=== PATIENT | female | born 1970 | race Caucasian/White ===

== ENCOUNTER → 2017-03-22 | Outpatient (CLI) | payer MEDICARE, OTHER ==
--- NOTE | 2017-03-23 09:11 | MM ---
Reason for exam: screening (asymptomatic). Last mammogram was performed 2 years and 4 months ago. History: Took hormonal contraceptives for 1 year. Physical Findings: A clinical breast exam by your physician is recommended on an annual basis and results should be correlated with mammographic findings. MG 3D Screening Mammo W/Cad Bilateral CC and MLO view(s) were taken. Prior study comparison: November 24, 2014, bilateral MG screening mammo w CAD. January 13, 2013, bilateral digital screening mammo w/CAD. The breast tissue is extremely dense which could obscure a lesion on mammography. There is chronic nodularity in the right breast, reduced in size. ASSESSMENT: Benign, BI-RAD 2 RECOMMENDATION: Routine screening mammogram of both breasts in 1 year.
== END | disposition home or self-care (01) ==
LOC: RADMAMWWP 06:46
PROVIDERS: ATTEND Family Medicine
DX: Z12.31 Encounter for screening mammogram for malignant neoplasm of breast (principal)
CPT/HCPCS: 77063; G0202

== ENCOUNTER → 2018-04-24 | Outpatient (CLI) | payer MEDICARE, OTHER ==
--- NOTE | 2018-04-29 12:09 | MM ---
Reason for exam: screening (asymptomatic). Last mammogram was performed 1 year and 1 month ago. History: Patient is postmenopausal. Took hormonal contraceptives for 1 year. Physical Findings: A clinical breast exam by your physician is recommended on an annual basis and results should be correlated with mammographic findings. MG 3D Screening Mammo W/Cad Bilateral CC and MLO view(s) were taken. Prior study comparison: March 22, 2017, bilateral MG 3d screening mammo w/cad. November 24, 2014, bilateral MG screening mammo w CAD. The breast tissue is heterogeneously dense. This may lower the sensitivity of mammography. There is no discrete abnormality. No significant changes when compared with prior studies. ASSESSMENT: Negative, BI-RAD 1 RECOMMENDATION: Routine screening mammogram of both breasts in 1 year.
== END | disposition home or self-care (01) ==
LOC: RADMAMWWP 16:28
PROVIDERS: ATTEND Family Medicine
DX: Z12.31 Encounter for screening mammogram for malignant neoplasm of breast (principal)
CPT/HCPCS: 77063; 77067

== ENCOUNTER 2021-11-15 08:42 | Day surgery (SDC) | payer MEDICARE, OTHER ==
[2021-11-11 14:31] VITALS: BMI 26.2
[~2021-11-15 08:42] MED LIST: LACTATED RINGERS 1,000 ML IV SCH; LIDOCAINE 1% (10MG/ML) FOR IV START INTRADERMA PRN
[2021-11-15 09:12] VITALS: RESP 16; TEMP 97.5
[2021-11-15] MEDS ORDERED: PROPOFOL 10 MG/ML 20 ML VIAL IV ONE (09:31)
[2021-11-15] MEDS ORDERED: LIDOCAINE 1% INJ 10MG/ML (20 ML MDV) ONE (09:31)
--- NOTE | 2021-11-15 09:35 | P.GSHP ---
History of Present Illness H&P Date: 11/15/21 Chief Complaint: Blood in stool 51-year-old female here today for upper and lower endoscopy. Patient had recent stool studies showing cecal occult blood. Heartburn, no epigastric pain. No dysphagia. No bowel complaints. Last colonoscopy and EGD in 2014. Past Medical History Past Medical History: Asthma, GI Bleed, Hypertension Additional Past Medical History / Comment(s): Chronic back pain. Past hx blee ding ulcer. Hx blood in stool. History of Any Multi-Drug Resistant Organisms: None Reported Past Surgical History: Back Surgery, Ear Surgery Additional Past Surgical History / Comment(s): Surgery to straighten legs at age 1. Tumors removed from head, face. Multiple Back surgeries for scoliosis. Colonoscopy, EGD. Past Anesthesia/Blood Transfusion Reactions: No Reported Reaction Smoking Status: Former smoker - Past Family History Father Family Medical History: Liver Disease Additional Family Medical History / Comment(s): cirrhosis of liver Mother Family Medical History: Deep Vein Thrombosis (DVT) Additional Family Medical History / Comment(s): "mother had possible blood clots, wore compression socks" Medications and Allergies Home Medications Medication Instructions Recorded Confirmed Type Albuterol Sulfate [Ventolin HFA] 1 - 2 puff INHALATION Q6H PRN 11/11/21 11/15/21 History Budesonide/Formoterol Fumarate 1 puff INHALATION BID 11/11/21 11/15/21 History [Symbicort 80-4.5 Mcg Inhaler] Cyclobenzaprine [Flexeril] 10 mg PO TID PRN 11/11/21 11/15/21 History Fluticasone Propionate [Flonase 1 spray EA NOSTRIL DAILY PRN 11/11/21 11/15/21 History Allergy Relief] Ibuprofen [Motrin] 800 mg PO Q6H PRN 11/11/21 11/15/21 History Losartan [Cozaar] 25 mg PO DAILY 11/11/21 11/15/21 History Montelukast [Singulair] 10 mg PO HS 11/11/21 11/15/21 History Omeprazole [PriLOSEC] 20 mg PO AC-BRKFST 11/11/21 11/15/21 History busPIRone HCL 5 mg PO TID 11/11/21 11/15/21 History Allergies Allergy/AdvReac Type Severity Reaction Status Date / Time No Known Allergies Allergy Verified 11/15/21 09:11 Surgical - Exam Vital Signs Temp Pulse Resp BP Pulse Ox 97.5 F L 92 16 121/70 97 11/15/21 09:10 11/15/21 09:10 11/15/21 09:10 11/15/21 09:10 11/15/21 09:10 Physical exam: General: Well-developed, well-nourished HEENT: Normocephalic, sclerae nonicteric Abdomen: Nontender, nondistended Extremities: No edema Neuro: Alert and oriented Assessment and Plan (1) Blood in stool Narrative/Plan: Will proceed with upper and lower endoscopy Current Visit: Yes Status: Acute Code(s): K92.1 - MELENA SNOMED Code(s): 097567084
--- NOTE | 2021-11-15 09:57 | P.PCN ---
Date of Procedure: 11/15/21 Procedure(s) Performed: PREOPERATIVE DIAGNOSIS: Blood in stool POSTOPERATIVE DIAGNOSIS: Duodenitis, gastritis, hiatal hernia, mild proctitis PROCEDURE: 1. EGD with biopsy 2. Colonoscopy with biopsy ANESTHESIA: [facility] [place] SURGEON: Garfield Zuñiga M.D. SPECIMENS: Duodenum, antrum, body of stomach, rectum ENDOSCOPIC PROCEDURE: The patient was on the endoscopy table in the left decubitus position. The Olympus gastroscope was inserted into the oropharynx and passed under direct visualization to the region of the third portion of the duodenum. From that point the scope was slowly withdrawn inspecting all surfaces carefully. There was mild duodenitis present. Biopsies of the duodenum took place. The pylorus was widely patent. The stomach was inspected. There was gastritis present diffusely. Antral and body of the stomach biopsies were taken. Retroflexion revealed a small sliding hiatal hernia. No inflammatory changes at the level of the hiatal hernia and no abnormalities in the esophagus were noted. The patient was kept on the endoscopy table in the left decubitus position. The Olympus colonoscope was inserted into the anus and passed under direct visualization to the base of the cecum. The appendiceal orifice was visualized. From that point the scope was slowly withdrawn inspecting all surfaces carefully. There were no neoplastic inflammatory or polypoid lesions throughout the cecum, ascending, transverse, descending, and sigmoid colon. In the rectum distally involving the last 7 cm or so there was mild proctitis present. This may have been the source of recent fecal occult blood test positivity. Biopsies of the proctitis took place. There was no visible diverticulosis. Digital rectal examination was normal. The patient was taken to the recovery room in stable condition per anesthesia guidelines. RECOMMENDATIONS: Await biopsy results. Will contact patient with pathology results.
[2021-11-15 10:31] VITALS: BP 111/75; PULSE 72
== END 2021-11-15 10:49 | disposition home or self-care (01) ==
LOC: ORWHC2ENDO 08:42
PROVIDERS: ATTEND Surgery
DX: K29.80 Duodenitis without bleeding (principal); K29.70 Gastritis, unspecified, without bleeding; K62.89 Other specified diseases of anus and rectum; J45.909 Unspecified asthma, uncomplicated; I10 Essential (primary) hypertension; M41.9 Scoliosis, unspecified; Z87.891 Personal history of nicotine dependence
CPT/HCPCS: 45380; 43239; 88305; J2001; J2704

== ENCOUNTER → 2022-08-18 | Outpatient (CLI) | payer MEDICARE, OTHER ==
--- NOTE | 2022-08-18 15:05 | P.GSHP ---
History of Present Illness H&P Date: 08/18/22 Chief Complaint: abnormal bilateral breast ultrasound Javi is a 52 year old white female seen in consultation for Dr. Garcia regarding bilateral abnormal breast ultrasounds. She had a bilateral screening mammogram performed on [id number]. This revealed some calcifications in the right breast and a diagnostic right breast mammogram and bilateral breast ultrasounds were subsequently performed. Diagnostic mammogram was performed on [id number]. Additionally bilateral ultrasounds were performed in the right side 2 lesions were identified on ultrasound one at the 12 o'clock position, and one at the 10 o'clock position. In the left breast a lesion at the 1 o'clock position was identified for which core biopsy was recommended. Of concern is the fact that the patient also has microcalcifications in the right breast and following ultrasound core biopsy it should be ascertained that the area of calcifications are also sampled. The patient does not feel any new lumps masses or nodules of concern in either breast. She is not complaining of any nipple discharge or skin changes. She has never had any surgery on her breast. She has not had any recent trauma or infection in her breast. She is not complaining of any breast pain or nipple discharge. Caffeine: 3 cups coffee/day nicotine: stopped 20 years ago, used to smoke 1/2 PPD for 10 years chocolate: occasional BCP: 20 years stopped about 10 years ago Family History: none Hormonal History: menarche: 15 breast fed: no, age at first : 18 menopause: 48 Surgical History: bilateral legs 2 face for neurofibromatosis back scoliosis Medical history: HTN anxiety asthma muscle relaxers Social History: nicotine: as above alcohol: none' drugsL none - Constitutional Constitutional: Denies chills, Denies fever - EENT Eyes: bilateral blurred vision, denies pain Ears: left: decreased hearing, deny: tinnitus Ears, nose, mouth and throat: Denies headache, Denies sore throat - Breasts Breasts: bilateral: as per HPI - Cardiovascular Cardiovascular: Denies chest pain, Denies shortness of breath - Respiratory Comment: asthma - Gastrointestinal Comment: bleeding ulcer Gastrointestinal: Denies abdominal pain, Denies diarrhea, Denies nausea, Denies vomiting - Genitourinary (Female) Genitourinary: Denies dysuria, Denies hematuria - Menstruation Menstruation: Reports postmenopausal - Musculoskeletal Musculoskeletal: Reports as per HPI, Denies myalgias - Integumentary Integumentary: Denies pruritus, Denies rash - Neurological Neurological: Denies numbness, Denies weakness - Psychiatric Psychiatric: Reports anxiety - Endocrine Endocrine: Denies fatigue, Denies weight change - Hematologic/Lymphatic Comment: none - Allergic/Immunologic Allergic/Immunologic: Reports seasonal allergies Past Medical History Past Medical History: Asthma, GI Bleed, Hypertension Additional Past Medical History / Comment(s): Chronic back pain. Past hx bleeding ulcer. Hx blood in stool. History of Any Multi-Drug Resistant Organisms: None Reported Past Surgical History: Back Surgery, Ear Surgery Additional Past Surgical History / Comment(s): Surgery to straighten legs at age 1. Tumors removed from head, face. Multiple Back surgeries for scoliosis. Colonoscopy, EGD. Past Anesthesia/Blood Transfusion Reactions: No Reported Reaction Past Psychological History: Anxiety Smoking Status: Former smoker Past Alcohol Use History: None Reported Additional Past Alcohol Use History / Comment(s): Smoked 5 years, quit 1995. Past Drug Use History: None Reported - Past Family History Father Family Medical History: Liver Disease Additional Family Medical History / Comment(s): cirrhosis of liver Mother Family Medical History: Deep Vein Thrombosis (DVT) Additional Family Medical History / Comment(s): "mother had possible blood clots, wore compression socks" Medications and Allergies Home Medications Medication Instructions Recorded Confirmed Type Albuterol Sulfate [Ventolin HFA] 1 - 2 puff INHALATION Q6H PRN 11/11/21 08/15/22 History Budesonide/Formoterol Fumarate 1 puff INHALATION BID 11/11/21 08/15/22 History [Symbicort 80-4.5 Mcg Inhaler] Cyclobenzaprine [Flexeril] 10 mg PO TID PRN 11/11/21 08/15/22 History Fluticasone Propionate [Flonase 1 spray EA NOSTRIL DAILY PRN 11/11/21 08/15/22 History Allergy Relief] Ibuprofen [Motrin] 800 mg PO Q6H PRN 11/11/21 08/15/22 History Losartan [Cozaar] 25 mg PO DAILY 11/11/21 08/15/22 History Montelukast [Singulair] 10 mg PO HS 11/11/21 08/15/22 History Omeprazole [PriLOSEC] 20 mg PO AC-BRKFST 11/11/21 08/15/22 History busPIRone HCL 5 mg PO TID 11/11/21 08/15/22 History Allergies Allergy/AdvReac Type Severity Reaction Status Date / Time No Known Allergies Allergy Verified 08/15/22 10:26 Surgical - Exam - General no distress - Eyes normal ocular movement - Neck trachea midline - Respiratory normal respiratory effort, clear to auscultation - Cardiovascular Rhythm: regular Heart Sounds: normal: S1, S2 - Abdomen Abdomen: soft, non tender, no guarding, no rigid, no rebound - Integumentary normal turgor, scattered neurofibromas superficial - Neurologic no disoriented, no combative - Musculoskeletal Scoliosis/well-healed scar back from prior surgery normal gait, normal posture - Psychiatric oriented to time, oriented to person, oriented to place, speech is normal, memory intact Breast Exam: BRA: 36B Inspection: Bilateral grade 2 ptosis, neurofibromas superficially bilaterally Palpation: Right breast: Multi-positional exam fibrocystic changes, no discrete dominant masses or nodules of concern particularly attention is paid at the 12:00 and 10 o'clock position with no lesions of concern palpated Right axilla: No adenopathy of concern Left breast: Multi-positional exam fibrocystic changes no dominant discrete lesions of concern identified particular attention at the 1 o'clock positionof the lesions of concern Left axilla: No adenopathy of concern Results Mammogram and ultrasound reviewed personally with Dr. Suarez from radiology Assessment and Plan Assessment: Impression: HTN anxiety asthma muscle relaxers Neurofibromatosis Scoliosis Abnormal bilateral breast ultrasound, mammogram revealing some microcalcifications in the right breast Plan: Ultrasound-guided core biopsy 2 lesions in the right breast 1 lesion in the left breast The area of microcalcifications will be evaluated after the clips are placed from ultrasound core biopsy of that area has not been sampled the stereotactic core biopsy of a third area in the right breast is recommended The patient is scheduled for the ultrasound core biopsy on August 25. In benefits of the procedure discussed with the patient and her daughter. They understand she will follow-up approximately week after the biopsies. CC: Devika Yanes, Dr. Garcia
== END ==
LOC: WWCWWP 13:56
PROVIDERS: ATTEND Surgery
DX: I10 Essential (primary) hypertension (principal); R92.0 Mammographic microcalcification found on diagnostic imaging of breast; F41.9 Anxiety disorder, unspecified; J45.909 Unspecified asthma, uncomplicated; M41.9 Scoliosis, unspecified; Q85.00 Neurofibromatosis, unspecified

== ENCOUNTER → 2022-08-25 | Day surgery (SDC) | payer MEDICARE, OTHER ==
--- NOTE | 2022-08-30 09:49 | MM ---
Reason for Exam: Post Procedure Mammogram. Last mammogram was performed 4 year(s) and 4 month(s) ago. Patient History: Menarche at age 15. First Full-Term at age 18. Postmenopausal. Patient used Hormonal Contraceptives for 1 year. Risk Values: Itzel 5 year model risk: 0.7%. NCI Lifetime model risk: 5.7%. Prior Study Comparison: 11/24/2014 Bilateral Screening Mammogram, [facility]. 03/22/2017 Bilateral Screening Mammogram, [facility]. 04/24/2018 Bilateral Screening Mammogram, [facility]. Tissue Density: The breast tissue is heterogeneously dense. This may lower the sensitivity of mammography. Pathology Description: Location: 1 o'clock, upper outer quadrant, posterior. Marker Left Behind. Cores: 2 Gauge: 12 The ultrasound guided cyst aspiration and/or breast biopsy procedure was explained to the patient. The risks, benefits, alternatives were discussed. An informed consent was then obtained. Timeout was performed. The patient was placed in supine positioning for imaging and for the procedure. Preprocedure ultrasound redemonstrates oval 7 mm lesion 12:00 position 2 cm distance from nipple in the right breast fairly anechoic with thin septa and increased through transmission favoring septated cyst. There is round circumscribed 7 mm hypoechoic lesion 10:00 position 3 cm distance from nipple redemonstrated with suggestion of internal calcification. Left breast shows vague elongated hypoechoic area measuring near 10 mm long axis I:00 position 5 cm distance from nipple. The overlying skin was prepped with betadine and sterilely draped in usual sterile fashion. 10 ml 1% lidocaine was used as anesthetic into the skin. A total of 10 cc lidocaine with epinephrine is used as anesthetic into the Deeper breast tissue up to area of concern in bilateral breasts. Under ultrasound guidance fine-needle aspiration first performed of the 12:00 lesion yielding less than 1 cc of cloudy fluid. A BF clip was then placed., Attention then turned to the 10:00 lesion. 2 core samples were obtained under ultrasound guidance then wing clip was placed. Attention then turned to left breast 1:00 area of concern. 2 samples placed under ultrasound guidance. BF clip then placed. Good hemostasis was obtained with direct pressure. Postprocedure mammogram: The patient was transferred to mammography for physician ordered post procedure mammogram for clip placement verification. Successful deployment of left breast clip without suspicious area on recent mammogram. Successful deployment of both right breast clips with second wing clip corresponding to the worked up calcified lesion farther outer upper aspect right breast. The patient tolerated the procedure well without any immediate complication. The patient was discharged to home in stable condition. Impression: Successful ultrasound guided cyst aspiration nonsimple cyst right breast. Successful ultrasound guided core biopsy right breast lesion and left breast area. Cytology pending. Low index of suspicion of the aspiration nonsimple cysts right breast 12:00 position. Low index of suspicion of the left breast biopsied area. Intermediate index of suspicion of the right breast biopsied 10:00 lesion. Pathology Results: Result: Benign, Fibrocystic change. A. RIGHT BREAST, 10:00, NEEDLE CORE BIOPSY: Attenuated cyst wall with chronic inflammation, fibrosis, and foamy histiocytes suggestive of cyst rupture. Background fibrocystic changes. B. LEFT BREAST, 1:00, NEEDLE CORE BIOPSY: Fibroadenoma and background fibrocystic changes. RIGHT BREAST, 12:00, ASPIRATE: Hypocellular specimen consisting of degenerated blood and rare degenerated epithelioid cells, non-diagnostic. Pathology Description: Location: 10 o'clock, upper outer quadrant, posterior. Marker Left Behind. Needle Type: Celero Cores: 2 Gauge: 12 Pathology Description: Location: 12 o'clock, upper inner quadrant. BUTTERFLY CLIP. Overall Assessment: Benign Assessment: MG diagnostic mammo BI wo CAD - Bilateral: Benign, BI-RAD 2. Management: Diagnostic Breast Ultrasound of both breasts in 6 months. Electronically signed and approved by: Don Suarez M.D.
== END ==
LOC: RADUSWWP 09:53
PROVIDERS: ATTEND Surgery
DX: R92.8 Other abnormal and inconclusive findings on diagnostic imaging of breast (principal); D24.2 Benign neoplasm of left breast; N61.0 Mastitis without abscess; N60.21 Fibroadenosis of right breast
CPT/HCPCS: 88305; 77066; 76942; 19000; 19083 ×2; A4648

== ENCOUNTER → 2022-08-31 | Outpatient (CLI) | payer MEDICARE, OTHER ==
--- NOTE | 2022-08-31 15:18 | P.PN ---
Subjective Progress Note Date: 08/31/22 Principal diagnosis: fibrocystic breast changes Javi is a 52 year old white female status post bilateral breast biopsies. The patient did well with the biopsies and has no complaints at this time. [id number] right breast 10:00 needle core biopsy: Attenuated cyst wall with chronic inflammation [id number] left breast 1:00 needle core biopsy: Fibroadenoma [id number] right breast 12:00 aspirate hypocellular specimen consisting of degenerated blood Rectal examination: Biopsy site right and left breast clean and dry Lungs: Clear Heart: Regular rate and rhythm The pathology results were reviewed by Dr. Suarez and felt to be benign and concordant Recommendation is for repeat bilateral ultrasound in 6 months with examination at that time. CC: Dr. Garcia Objective - Vital Signs Vital signs: Intake & Output 08/30/22 08/31/22 08/31/22 18:59 06:59 18:59 Weight 61.235 kg
== END ==
LOC: WWCWWP 14:48
PROVIDERS: ATTEND Surgery
DX: N60.21 Fibroadenosis of right breast (principal); N60.22 Fibroadenosis of left breast

== ENCOUNTER 2023-01-24 08:36 | Emergency (ER) | payer MEDICARE, OTHER ==
--- NOTE | 2023-01-24 09:46 | XR ---
EXAMINATION TYPE: XR cervical spine comp DATE OF EXAM: 01/24/2023 9:38 AM INDICATION: Patient age:Female; 52 years old; Reason for study: pain; COMPARISON: None TECHNIQUE: The cervical spine was imaged in frontal, lateral, odontoid and bilateral oblique. FINDINGS: Fixation hardware throughout the spine. There is a break through the serenity appreciated on the left just below the C5 vertebrae collection.. There remainder of the hardware appears intact. No acu te osseous pathology. Fusion of the osseous structures seen extending from C3 to the lower cervical s pine. Facet and uncovertebral joint arthropathy are present. Final canal slightly limited given fixat ion hardware. There may be mild grade 1 anterolisthesis of C2 on C3. IMPRESSION: 1. Post surgical changes with fixation hardware. There is a fracture of the fixation serenity on the left just below the C5 vertebrae connection. Multilevel fusion of the vertebral bodies. No obvious fractu re visualized. 2. Minimal grade 1 anterolisthesis of C2 onto C3.
[2023-01-24 10:15] VITALS: RESP 16
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
[2023-01-24 11:10] VITALS: BP 151/78; PULSE 79; TEMP 98
== END 2023-01-24 11:08 | disposition home or self-care (01) ==
LOC: EC 08:36
DX: T84.296A Other mechanical complication of internal fixation device of vertebrae, initial encounter (principal); J45.909 Unspecified asthma, uncomplicated; I10 Essential (primary) hypertension; F41.9 Anxiety disorder, unspecified; Z87.891 Personal history of nicotine dependence; Z79.51 Long term (current) use of inhaled steroids; Z79.899 Other long term (current) drug therapy; V49.40XA Driver injured in collision with unspecified motor vehicles in traffic accident, initial encounter
CPT/HCPCS: 72050; 99284

== ENCOUNTER 2023-03-02 07:33 | Day surgery (SDC) | payer MEDICARE, OTHER ==
[2023-03-02 08:23] VITALS: RESP 16; TEMP 97.5
[2023-03-02] MEDS ORDERED: diazePAM 5 MG TAB PO STA (08:27)
--- NOTE | 2023-03-02 11:57 | CT ---
EXAMINATION TYPE: CT cervical spine w con DATE OF EXAM: 03/02/2023 COMPARISON: Radiograph 01/24/2023 HISTORY: 52-year-old female with multiple surgeries for scoliosis and previous spine injury. Recent M [facility] with exacerbated neck and shoulder pain. TECHNIQUE: Contiguous CT scanning of the cervical spine after intrathecal administration of Isovue M 300. Please refer to myelogram injection report of the same day for further details. Coronal and sagi ttal reconstructions performed. CT DLP: 523.6 mGycm Automated exposure control for dose reduction was used. FINDINGS: Goiterous enlargement of the thyroid gland, particularly the right lobe which measures up to 4.9 x 3. 3 x 3.9 cm. There is a marked dextroconvex scoliosis. No craniocervical junction abnormality, predental space widening, or prevertebral soft tissue swellin g. Posterior cervicothoracic fusion. Starting from C2 on the right and C3 on the left. We note a serenity fracture on the left at the C6 level located between the facet screw portion and the la minar hook. There is minimal 2 mm of displacement. The right C2 facet screw does not have any bony purchase and may be causing some chronic bony remodel ing of the right C2 inferior facet given lucency surrounding the tip of the screw. Prominent grade 1 anterolisthesis C2-C3. There is some type of large osseous defect and jim 2 cm of anterior displacement at T1-T2 possibly related to old spine transection. Further clinical correlation recommended. The osseous defect measures up to 3.1 cm, sagittal image 31, and allows for a large meningocele to pr oject into and fill the right apex measuring up to 6.2 x 6.0 x 5.1 cm. This opacifies with the admini stered contrast similar to the thecal sac. From C3 down, there is mature bony ankylosis. Platelike bony bridging along the dorsum of the spine e xtending along the ribs to either side. No evident canal compromise. No significant neural foraminal narrowing seen. Emphysematous changes in the visualized upper lungs. Hazy density could reflect generalized atelectas is. IMPRESSION: 1. Marked dextroconvex scoliosis with cervicothoracic posterior fusion hardware. This starts from C2 on the right and from C3 on the left. However, note that the C2 facet screw does not have any bony pu rchase and given the bony remodeling at the tip of the screw, suggests some motion at this site. 2. The left vertical stabilization serenity is fractured opposite the C6 level between the facet screw por tion and the laminar hook. Minimal 2 mm of displacement of the serenity. 3. A 2 cm anterior displacement between T1-T2; query any history of traumatic spine transection. 4. Mature bony ankylosis from C3 down. From the level of spinal malalignment (T1-T2) there is plateli ke bony ankylosis along the dorsum of the spine that also include some of the ribs as well. 5. There is a resultant large 3.1 cm osseous defect of the spinal canal projecting towards the right. This allows for a large 6.2 cm meningocele to extend into and fill the right apex. The meningocele a lso fills with the administered contrast similar to the rest of the thecal sac. 6. A degenerative prominent grade 1 anterolisthesis above the fusion at C2-C3. No spinal canal compro mise or significant neuroforaminal stenosis seen. 7. COPD.
--- NOTE | 2023-03-02 11:59 | XR ---
EXAMINATION TYPE: XR chest 1V portable DATE OF EXAM: 03/02/2023 Comparison: Correlation CT myelogram images Clinical History: 52-year-old female post Myleogram Findings: The C3 down through T12 posterior cervicothoracic fusion. Dextro convex scoliosis. Cardiomegaly. Hype rinflation. Interstitial prominence. Large oval masslike area at the right apex measuring 6.5 cm. Impression: 1. Large 6.5 cm oval masslike area filling the right apex compatible with the large meningocele (opac ified with the intrathecal contrast) that is better characterized on the patient's CT images. 2. Marked dextroconvex scoliosis with prior cervicothoracic fusion. 3. Cardiomegaly, COPD. Interstitial prominence; correlate to exclude mild pulmonary vascular congesti on.
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
[2023-03-02 14:01] VITALS: BP 115/67; PULSE 76
== END 2023-03-02 13:50 | disposition home or self-care (01) ==
LOC: RADPROMAIN 07:33
PROVIDERS: ATTEND Family Medicine
DX: M96.69 Fracture of other bone following insertion of orthopedic implant, joint prosthesis, or bone plate (principal); M41.82 Other forms of scoliosis, cervical region; E04.9 Nontoxic goiter, unspecified; Z98.1 Arthrodesis status; M43.16 Spondylolisthesis, lumbar region; M51.24 Other intervertebral disc displacement, thoracic region; Q05.9 Spina bifida, unspecified; J44.9 Chronic obstructive pulmonary disease, unspecified; I51.7 Cardiomegaly; M48.061 Spinal stenosis, lumbar region without neurogenic claudication; Z87.81 Personal history of (healed) traumatic fracture; M47.814 Spondylosis without myelopathy or radiculopathy, thoracic region; M47.816 Spondylosis without myelopathy or radiculopathy, lumbar region; M51.36 Other intervertebral disc degeneration, lumbar region; K57.30 Diverticulosis of large intestine without perforation or abscess without bleeding; M41.86 Other forms of scoliosis, lumbar region
CPT/HCPCS: 71045; 62305; 72126; 72132; Q9967

== ENCOUNTER → 2023-03-08 | Outpatient (CLI) | payer MEDICARE, OTHER ==
--- NOTE | 2023-03-08 08:32 | USB ---
Reason for Exam: Follow-up at short interval from prior study. Patient History: Menarche at age 15. First Full-Term at age 18. Postmenopausal. Patient used Hormonal Contraceptives for 1 year. 08/25/2022, Benign US biopsy breast VAD LT on the left side. 08/25/2022, US biopsy breast VAD RT on the Right side. 08/25/2022, US breast aspiration single RT on the Right side. Risk Values: Itzel 5 year model risk: 1.1%. NCI Lifetime model risk: 8.4%. Technique: Method: Targeted. Prior Study Comparison: 03/22/2017 Bilateral Screening Mammogram, [facility]. 04/24/2018 Bilateral Screening Mammogram, [facility]. 08/25/2022 Bilateral MG diagnostic mammo BI wo CAD, [facility]. Findings: The upper outer quadrant of both breasts, the axilla of both breasts and the retroareolar of both breasts were scanned. Targeted ultrasound of the right breast at 10:00 3 cm from the nipple does not demonstrate previously seen biopsied lesion. The clip is not definitely identified. Targeted ultrasound of the right breast at 12:00 2 cm from the nipple demonstrates the biopsy clip within a small anechoic cyst measuring 0.5 x 0.4 x 0.7 cm. No solid internal components identified. No internal color flow. Additional evaluation of the nipple and axilla was performed without abnormality. Targeted ultrasound of the left breast at 1:00 5 cm from the nipple redemonstrates a lobulated hypoechoic mass with biopsy clip consistent with proven adenoma. This is not significant change from prior examination measures 1.0 x 0.5 x 1.2 cm. No internal color flow. This is parallel in orientation. No posterior acoustic features. Additional evaluation of the nipple and axilla are unremarkable. Overall Assessment: Benign, BI-RAD 2 Management: Screening Mammogram of both breasts in 6 months. A clinical breast exam by your physician is recommended on an annual basis and results should be correlated with mammographic findings. This exam should not preclude additional follow-up of suspicious palpable abnormalities. Results were given to the patient verbally at the time of exam. Electronically signed and approved by: Salvador Buckner D.O.
== END | disposition home or self-care (01) ==
LOC: RADUSWWP 07:55
PROVIDERS: ATTEND Surgery
DX: R92.8 Other abnormal and inconclusive findings on diagnostic imaging of breast (principal); Z78.0 Asymptomatic menopausal state

== ENCOUNTER → 2023-06-14 | Outpatient (CLI) | payer MEDICARE, OTHER ==
[2023-06-14 09:42] VITALS: BP 150/84; PULSE 92; RESP 16
--- NOTE | 2023-06-14 14:50 | P.PAINPG ---
PQRS Measure Charge Sheet Comment: HISTORY OF PRESENT ILLNESS: 52 yr old female as a referral from Dr Garcia presents today w severe and chronic LBP secondary to L4-L5 focal severe spinal stenosis, DDD, spondylosis and facet arthropathy without myelopathy for evaluation. Pt states pain level is provoked at 7/10 in intensity, constant, localized in the lower lumbar spine, stabbing in character w shooting pain towards the LLE. Pain is provoked by walking/ standing for periods of 20 min or more. Pain is alleviated by heat, medications (Celebrex), topical, repositioning and rest. Oswestry axial pain score at 18. PMH: OA, Asthma, GERD, HTN, Anxiety PSH: Back Surgeries for Scoliosis, Ear Surgery, Colonoscopy/ EGD SH: 5 pack yr tobacco history, No ETOH abuse, No illicit drug use FH: Fa- Liver Cirrhosis, Mo- DVT All: See list Meds: See list REVIEW OF ORGAN SYSTEMS: CONSTITUTIONAL: No fevers or chills. No recent weight loss. NEUROLOGICAL: + numbness and tingling along the distal extremities. No seizure disorders or headaches. MUSCULOSKELETAL: + pain PSYCHIATRIC: Denies current depression or suicidal thoughts. Physical Examinations : Constitutional : Cooperative , not in acute distress . Neurologic : Cranial nerve II to XII intact. No focal neurological deficits. Psychiatric : alert & oriented x 3. Matching mood & appropriate affect. Judgment & insight intact. Musculoskeletal : Cervical Spine Motor strength in the deltoid and biceps: Normal right side. Normal Left side Motor strength biceps and the wrist extensors: Normal right side . Normal left side Motor strength in the triceps muscle: Normal right side. Normal left side Deep tendon reflexes: Normal at the biceps. Normal at Brachioradialis. Normal at triceps Vertebral body tenderness to deep palpation over Cervical facet loading test: positive bilaterally Spurling test: positive bilaterally Neck distraction test: positive bilaterally Catracho sign: positive bilaterally Lumbar spine Motor strength lower extremities ,thigh and legs 5/5 Right side , 5/5 Left side Deep tendon reflexes : Normal Knee Jerk. Normal Ankle Jerk Vertebral body tenderness over Patel Test positive Lumbar facet Loading Test: positive Right / positive Left Range of motion of the lumbar spine Flexion 30 degrees, extension 10 degrees Straight Leg Raise test: Left/ Right positive at degree Nona test: positive right / positive left. Severe tenderness over the Sacroiliac joint on the Right / Left sides Gaenslen test: positive bilaterally Seated flexion test: positive bilaterally. Sacral spine : Severe tenderness over the Sacroiliac joint: right side / left side Range of motion: Flexion of the lumbar spine <60 degrees Range of motion: Extension of the lumbar spine <20 degrees Gaenslen's Test positive Jeb's Test positive Nona test: positive right side / left side Thigh Thrust Test Sacral Thrust Test Imaging: CT without contrast lumbar spine from 03/02/23 reviewed Assessment/ Plan : Lumbar DDD, Lumbar stenosis Recommendation of PT x 6 wks Dx M51.36. RTC in 6 wks for a re evaluation. All questions answered. I have spent greater than 30 minutes on patient care today. Dr Shah was available by phone for the evaluation of this patient. The time was used to review the medical records including relevant urine studies and Prescription h istory (MAPs), review of the available imaging, evaluation and examination of the patient, coordination of care with the medical staff and if applicable referring physicians, as well as creation of the medical record Home Medications: Ambulatory Orders Albuterol Sulfate [Ventolin HFA] 1 - 2 puff INHALATION Q6H PRN 11/11/21 Budesonide/Formoterol Fumarate [Symbicort 80-4.5 Mcg Inhaler] 1 puff INHALATION BID 11/11/21 Cyclobenzaprine [Flexeril] 10 mg PO TID PRN 11/11/21 Ibuprofen [Motrin] 800 mg PO Q6H PRN 11/11/21 Losartan [Cozaar] 25 mg PO DAILY 11/11/21 Montelukast [Singulair] 10 mg PO HS 11/11/21 busPIRone HCL 5 mg PO TID 11/11/21 Cholecalciferol [Vitamin D3 (125 Mcg = 5000 Iu)] 125 mcg PO ONCE 02/21/23 Controlled Substance Measures - Controlled Substance Measures Is patient prescribed a controlled substance at discharge?: No
== END ==
LOC: PNWHC3 08:40
PROVIDERS: ATTEND Specialist
DX: M48.061 Spinal stenosis, lumbar region without neurogenic claudication (principal); M51.16 Intervertebral disc disorders with radiculopathy, lumbar region; M47.26 Other spondylosis with radiculopathy, lumbar region; M19.90 Unspecified osteoarthritis, unspecified site; J45.909 Unspecified asthma, uncomplicated; K21.9 Gastro-esophageal reflux disease without esophagitis; I10 Essential (primary) hypertension; F41.9 Anxiety disorder, unspecified; F17.200 Nicotine dependence, unspecified, uncomplicated; Z79.899 Other long term (current) drug therapy; Z79.51 Long term (current) use of inhaled steroids
CPT/HCPCS: 99211

== ENCOUNTER → 2023-07-26 | Outpatient (CLI) | payer MEDICARE, OTHER ==
[2023-07-26 08:43] VITALS: BP 128/80; PULSE 78; RESP 16; TEMP 98.3
--- NOTE | 2023-07-26 10:29 | P.PAINPG ---
PQRS Measure Charge Sheet Comment: HISTORY OF PRESENT ILLNESS: 52 yr old female presents today w severe and chronic LBP secondary to L4-L5 focal severe spinal stenosis, DDD, spondylosis and facet arthropathy without myelopathy for evaluation. Pt states pain level is provoked at 6/10 in intensity, constant, localized in the lower lumbar spine, predominantly axial, stabbing in character w shooting pain towards the back of the BLEs. Pain is provoked by walking/ standing for periods of 20 min or more. Pain is alleviated by PT x 6 wks in Jul 2023, physician guided home exercises daily since Jul 2023, heat, medications, topical, repositioning and rest. Oswestry axial pain score at 18. Interventional procedures include DENIES Medications include Celebrex, Ibu, Flexeril REVIEW OF ORGAN SYSTEMS: CONSTITUTIONAL: No fevers or chills. No recent weight loss. NEUROLOGICAL: + numbness and tingling along the distal extremities. No seizure disorders or headaches. MUSCULOSKELETAL: + pain PSYCHIATRIC: Denies current depression or suicidal thoughts. Physical Examinations : Constitutional : Cooperative , not in acute distress . Neurologic : Cranial nerve II to XII intact. No focal neurological deficits. Psychiatric : alert & oriented x 3. Matching mood & appropriate affect. Judgment & insight intact. Musculoskeletal : Cervical Spine Motor strength in the deltoid and biceps: Normal right side. Normal Left side Motor strength biceps and the wrist extensors: Normal right side . Normal left side Motor strength in the triceps muscle: Normal right side. Normal left side Deep tendon reflexes: Normal at the biceps. Normal at Brachioradialis. Normal at triceps Vertebral body tenderness to deep palpation over Cervical facet loading test: positive bilaterally Spurling test: positive bilaterally Neck distraction test: positive bilaterally Catracho sign: positive bilaterally Lumbar spine Motor strength lower extremities ,thigh and legs 5/5 Right side , 5/5 Left side Deep tendon reflexes : Normal Knee Jerk. Normal Ankle Jerk Vertebral body tenderness over Patel Test positive over L4, L5 Lumbar facet Loading Test: positive Right / positive Left Range of motion of the lumbar spine Flexion 30 degrees, extension 10 degrees Straight Leg Raise test: Left/ Right positive at <35 degrees Nona test: positive right / positive left. Severe tenderness over the Sacroiliac joint on the Right / Left sides Gaenslen test: positive bilaterally Seated flexion test: positive bilaterally. Sacral spine : Severe tenderness over the Sacroiliac joint: right side / left side Range of motion: Flexion of the lumbar spine <60 degrees Range of motion: Extension of the lumbar spine <20 degrees Gaenslen's Test positive Jeb's Test positive Nona test: positive right side / left side Thigh Thrust Test Sacral Thrust Test Imaging: CT without contrast lumbar spine from 03/02/23 reviewed Assessment/ Plan : Lumbar DDD, Lumbar stenosis Recommendation of BL TFESI L4-L5 #1. May need a series of injections for optimal pain relief. Risks, benefits of procedure discussed and pt verbalized unders tanding. Protocol for discontinuation/ continuation of medications surrounding procedure discussed. Would benefit from TENS unit use at home on since off from PT. All questions answered. I have spent greater than 30 minutes on patient care today. Dr Shah was available by phone for the evaluation of this patient. The time was used to review the medical records including relevant urine studies and Prescription history (MAPs), review of the available imaging, evaluation and examination of the patient, coordination of care with the medical staff and if applicable referring physicians, as well as creation of the medical record PQRS Narrative: Hx Alcohol Use (MH) No Home Medications: Ambulatory Orders Albuterol Sulfate [Ventolin HFA] 1 - 2 puff INHALATION Q6H PRN 11/11/21 Budesonide/Formoterol Fumarate [Symbicort 80-4.5 Mcg Inhaler] 1 puff INHALATION BID 11/11/21 Cyclobenzaprine [Flexeril] 10 mg PO TID PRN 11/11/21 Ibuprofen [Motrin] 800 mg PO Q6H PRN 11/11/21 Losartan [Cozaar] 25 mg PO DAILY 11/11/21 Montelukast [Singulair] 10 mg PO HS 11/11/21 busPIRone HCL 5 mg PO TID 11/11/21 Cholecalciferol [Vitamin D3 (125 Mcg = 5000 Iu)] 125 mcg PO ONCE 02/21/23 Controlled Substance Measures - Controlled Substance Measures Is patient prescribed a controlled substance at discharge?: No
== END ==
LOC: PNWHC3 07:30
PROVIDERS: ATTEND Specialist
DX: M51.36 Other intervertebral disc degeneration, lumbar region (principal); M48.061 Spinal stenosis, lumbar region without neurogenic claudication
CPT/HCPCS: 99211

== ENCOUNTER 2023-08-21 08:47 | Day surgery (SDC) | payer MEDICARE, OTHER ==
[~2023-08-21 08:47] MED LIST changes: -LIDOCAINE 1% (10MG/ML) FOR IV START INTRADERMA PRN
[2023-08-21 09:25] VITALS: TEMP 98.2
[2023-08-21] MEDS ORDERED: DEXAMETHASONE SOD PHOSPHATE 10 MG/ML 1 ML VIAL ONE (09:26)
[2023-08-21] MEDS ORDERED: IOPAMIDOL M200 10 ML VIAL ONE (09:26)
--- NOTE | 2023-08-21 09:37 | P.PCN ---
Date of Procedure: 08/21/23 Description of Procedure: PREOPERATIVE DIAGNOSIS: Lumbar radiculopathy POSTOPERATIVE DIAGNOSIS: Lumbar radiculopathy PROCEDURE 1. Transforaminal epidural steroid injection under fluoroscopic guidance bilateral L4-L5 2. Lumbar epidurogram IMAGING Fluoroscopy was used, images where saved to the medical record ANESTHESIA: Local only PROCEDURE DESCRIPTION / TECHNIQUE: The patient was seen and identified in the preoperative area. Risks, benefits, complications, and alternatives were discussed with the patient. The patient agreed to proceed with the procedure and signed the consent, vital signs were stable prior to the procedure. Patient was taken to the OR and time out was completed. The patient was placed in the prone position on procedure table and a pillow was placed under the abdomen to reduce lumbar lordosis. The lumbosacral area was prepped and draped in the usual sterile fashion. Vital signs were closely monitored during the procedure. Using oblique fluoroscopy, there is significant dextroscoliosis that needed to be contacted for an x-ray in the AP and lateral positions, the chin of the "Omar dog" at the pedicle and the skin and deeper tissues just below was localized with 1% lidocaine. Subsequently, a 22-gauge 3.5-inch spinal needle was advanced under a tunneled view fluoroscopic guidance just underneath the chin of the "Omar dog". Under lateral fluoroscopy, the needle was then advanced to the posterior border interforaminal space. After negative aspiration of CSF and blood and with no paresthesias, 1 mL of Omnipaque-240 contrast dye was injected excellent epidurogram. Subsequently, a solution totalling 2ml of dexamethasone and PFNS was injected after negative aspiration (total of 10mg of dexamethasone was used). The needle was removed intact. COMPLICATIONS: None DISPOSITION: The patient was placed in a supine position and transferred to the recovery area in a stable condition for observation. There was no evidence of lower extremity motor or sensory deficit after the procedure. Patient was discharged from the recovery room after meeting discharge criteria. Home discharge instructions were given to the patient by the staff. The patient was reexamined prior to discharge. Follow up as directed.
[2023-08-21 10:16] VITALS: BP 130/80; PULSE 87; RESP 16
--- NOTE | 2023-08-21 12:13 | FL ---
Fluoroscopy INDICATION: Pain FINDINGS: Fluoroscopy time: 10 seconds. Total dose area product (DAP) in uGy*m?, mGy*cm? (or similar): 0.78048 Images obtained: 2. IMPRESSION: 1. Documentation of fluoroscopy.
== END 2023-08-21 10:04 | disposition home or self-care (01) ==
LOC: ORPAIN 08:47
PROVIDERS: ATTEND Hospitalist
DX: M54.16 Radiculopathy, lumbar region (principal)
CPT/HCPCS: 64483; J1100; Q9966

== ENCOUNTER → 2023-08-27 | Outpatient (CLI) | payer MEDICARE, OTHER ==
--- NOTE | 2023-08-27 12:54 | MM ---
Reason for Exam: Follow-up at short interval from prior study. Last screening mammogram was performed 12 month(s) ago. Patient History: Menarche at age 15. First Full-Term at age 18. Postmenopausal. Patient used Hormonal Contraceptives for 1 year. 08/25/2022, Benign US biopsy breast VAD LT on the left side. 08/25/2022, US biopsy breast VAD RT on the Right side. 08/25/2022, US breast aspiration single RT on the Right side. Risk Values: Itzel 5 year model risk: 1.1%. NCI Lifetime model risk: 8.2%. Tissue Density: The breast tissue is heterogeneously dense. This may lower the sensitivity of mammography. Findings: Analyzed By CAD. Pattern appears symmetrical and stable. Coronary markers are present bilaterally. No significant interval changes are evident. No suspicious groups of microcalcifications, spiculated or lobular masses, architectural distortion or other secondary signs of malignancy are mammographically apparent. Overall Assessment: Benign, BI-RAD 2 Management: Screening Mammogram of both breasts in 1 year. A negative mammogram report should not preclude additional follow up of suspicious palpable abnormalities. Patient should continue monthly self breast exam. A clinical breast exam by your physician is recommended on an annual basis and results should be correlated with mammographic findings. Electronically signed and approved by: Joon Hopkins D.O. Radiologis
== END | disposition home or self-care (01) ==
LOC: RADMAMWWP 12:29
PROVIDERS: ATTEND Surgery
DX: R92.333 Mammographic heterogeneous density, bilateral breasts (principal); Z78.0 Asymptomatic menopausal state
CPT/HCPCS: 77062; 77066

== ENCOUNTER → 2023-09-20 | Outpatient (CLI) | payer MEDICARE, OTHER ==
[2023-09-20 08:03] VITALS: BP 124/72; PULSE 72; RESP 15; TEMP 98.6
--- NOTE | 2023-09-20 14:48 | P.PAINPG ---
PQRS Measure Charge Sheet Comment: HISTORY OF PRESENT ILLNESS: 52 yr old female presents today w severe and chronic LBP secondary to L4-L5 focal severe spinal stenosis, DDD, spondylosis and facet arthropathy without myelopathy for evaluation s/p BL TFESI L4-L5 #1. Pt states she experienced 80 % pain relief x 3-4 wks s/p procedure. Pt states pain level is provoked at 2/10 in intensity, constant, localized in the lower lumbar spine, predominantly axial, stabbing in character w shooting pain towards the back of the BLEs. Pain is provoked by walking/ standing for periods of 20 min or more. Pain is alleviated by injections, PT x 6 wks in Jun/ Jul 2023, physician guided home exercises daily since Jul 2023, heat, medications, topical, repositioning and rest. Oswestry axial pain score at 18. She has 6/10 cervical pain, predominantly axial, localized in the mid cervical spine with radiation occasionally to the superior aspects of trapezius. She has a PT script and will start this week. Interventional procedures include BL TFESI L4-L5 x1 Medications include Celebrex, Ibu, Flexeril REVIEW OF ORGAN SYSTEMS: CONSTITUTIONAL: No fevers or chills. No recent weight loss. NEUROLOGICAL: + numbness and tingling along the distal extremities. No seizure disorders or headaches. MUSCULOSKELETAL: + pain PSYCHIATRIC: Denies current depression or suicidal thoughts. Physical Examinations : Constitutional : Cooperative , not in acute distress . Neurologic : Cranial nerve II to XII intact. No focal neurological deficits. Psychiatric : alert & oriented x 3. Matching mood & appropriate affect. Judgment & insight intact. Musculoskeletal : Cervical Spine Motor strength in the deltoid and biceps: Normal right side. Normal Left side Motor strength biceps and the wrist extensors: Normal right side . Normal left side Motor strength in the triceps muscle: Normal right side. Normal left side Deep tendon reflexes: Normal at the biceps. Normal at Brachioradialis. Normal at triceps Vertebral body tenderness to deep palpation over Cervical facet loading test: positive bilaterally Spurling test: positive bilaterally Neck distraction test: positive bilaterally Catracho sign: positive bilaterally Lumbar spine Motor strength lower extremities ,thigh and legs 5/5 Right side , 5/5 Left side Deep tendon reflexes : Normal Knee Jerk. Normal Ankle Jerk Vertebral body tenderness over Patel Test positive over L4, L5 Lumbar facet Loading Test: positive Right / positive Left Range of motion of the lumbar spine Flexion 30 degrees, extension 10 degrees Straight Leg Raise test: Left/ Right positive at <35 degrees Nona test: positive right / positive left. Severe tenderness over the Sacroiliac joint on the Right / Left sides Gaenslen test: positive bilaterally Seated flexion test: positive bilaterally. Sacral spine : Severe tenderness over the Sacroiliac joint: right side / left side Range of motion: Flexion of the lumbar spine <60 degrees Range of motion: Extension of the lumbar spine <20 degrees Gaenslen's Test positive Jeb's Test positive Nona test: positive right side / left side Thigh Thrust Test Sacral Thrust Test Imaging: CT without contrast lumbar spine from 03/02/23 reviewed Assessment/ Plan : Lumbar DDD, Lumbar stenosis Will continue PT for cervical spine and may RTC in 6 wks for a re evaluation. All questions answered. I have spent greater than 30 minutes on patient care today. Dr Shha was available by phone for the evaluation of this patient. The time was used to review the medical records including relevant urine studies and Prescription history (MAPs), review of the available imaging, evaluation and examination of the patient, coordination of care with the medical staff and if applicable referring physicians, as well as creation of the medical record - Pain Location Bilateral Neck Non-Pharmacological Interventions: Heat, Ice, Inactivity, Position/Reposition Pharmacological Interventions: Epidural, Scheduled Medication PQRS Narrative: Hx Alcohol Use (MH) No Home Medications: Ambulatory Orders Albuterol Sulfate [Ventolin HFA] 1 - 2 puff INHALATION Q6H PRN 11/11/21 Budesonide/Formoterol Fumarate [Symbicort 80-4.5 Mcg Inhaler] 2 puff INHALATION BID 11/11/21 Cyclobenzaprine [Flexeril] 10 mg PO TID PRN 11/11/21 Ibuprofen [Motrin] 800 mg PO Q6H PRN 11/11/21 Losartan [Cozaar] 25 mg PO DAILY 11/11/21 Montelukast [Singulair] 10 mg PO HS 11/11/21 busPIRone HCL 5 mg PO TID 11/11/21 Cholecalciferol [Vitamin D3 (125 Mcg = 5000 Iu)] 125 mcg PO Q30D 02/21/23 Controlled Substance Measures - Controlled Substance Measures Is patient prescribed a controlled substance at discharge?: No
== END ==
LOC: PNWHC3 07:38
PROVIDERS: ATTEND Specialist
DX: M47.812 Spondylosis without myelopathy or radiculopathy, cervical region (principal); M51.36 Other intervertebral disc degeneration, lumbar region; M48.061 Spinal stenosis, lumbar region without neurogenic claudication
CPT/HCPCS: 99211

== ENCOUNTER → 2023-10-12 | Outpatient (CLI) | payer MEDICARE, OTHER ==
[2023-10-12 14:39] VITALS: BP 136/85; PULSE 90; RESP 17; TEMP 97.7
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
== END ==
LOC: WWCWWP 14:21
PROVIDERS: ATTEND Surgery
DX: N60.11 Diffuse cystic mastopathy of right breast (principal); J45.909 Unspecified asthma, uncomplicated; F41.9 Anxiety disorder, unspecified; I10 Essential (primary) hypertension; K92.1 Melena; Z98.890 Other specified postprocedural states; Z87.891 Personal history of nicotine dependence

== ENCOUNTER → 2023-10-30 | Outpatient (CLI) | payer MEDICARE, OTHER ==
--- NOTE | 2023-10-30 12:56 | CA ---
Exercise Stress Test Report Name: Javi Kebede Exam Date: 10/30/2023 11:12 Exam Location: [facility] Stress Ht (in): 59 Wt (lb): 145 BSA: 1.61 Ordering Phys: Hunter Garcia MD Referring Phys: Hunter Garcia MD Technologist: Mary Orozco Age: 53 Gender: F : 1970 Procedure CPT: Indications: R07.9 CHEST PAIN R06.02 SOB ICD-10 Codes: Patient History: Chest pain , shortness of breath, palpitations and hypertension Medications: Meds past 24 hrs: Pretest Chest Pain: STRESS TEST [place] Protocol Exercise Duration (min:sec): 03:[address] Depressions (mm): 0 Angina Score: 0 Real Score: 3 Resting HR (bpm): 88 Peak HR (bpm): 144 Resting BP (mmHg): 149 / 103 Peak BP (mmHg): 225 / 73 MPHR: 166 Target HR: 141 % MPHR: 87 METS: 4.7 Total Dose: Peak Dose: Atropine: Double Product: 87354 BP Response: Stress Termination: Reached target heart rate Stress Symptoms: No chest pain or symptoms Stress Summary: The patient's target heart rate was achieved ECG ANALYSIS Resting ECG: Sinus rhythm. Normal conduction. No arrhythmias. Normal repolarization. Stress ECG: No ECG evidence of ischemia with exercise. CONCLUSIONS 1. Poor exercise tolerance 2. Normal electrocardiographic response to exercise with no evidence of exercise-induced ischemia Dr. Rey Galvan MD (Electronically Signed) Final Date: 30 October 2023 12:55
== END | disposition home or self-care (01) ==
LOC: RADNMMAIN 10:16
PROVIDERS: ATTEND Family Medicine
DX: R07.9 Chest pain, unspecified (principal); R06.02 Shortness of breath
CPT/HCPCS: 93017

== ENCOUNTER → 2023-11-01 | Outpatient (CLI) | payer MEDICARE, OTHER ==
[2023-11-01 07:53] VITALS: BP 132/74; PULSE 87; RESP 15; TEMP 97.6
--- NOTE | 2023-11-01 14:35 | P.PAINPG ---
Objective - Vital Signs Vital signs: Intake & Output 10/31/23 11/01/23 11/01/23 18:59 06:59 18:59 Weight 63.503 kg PQRS Measure Charge Sheet Comment: HISTORY OF PRESENT ILLNESS: A 53 yr old female presents today w severe and chronic neck pain secondary to cervical postlaminectomy syndrome for evaluation. Pt states pain level is provoked at 6/10 in intensity, constant, localized in the cervical spine, predominantly axial, stabbing in character w shooting pain towards the back of the BL shoulders. Pain is provoked by laying supine for periods of 20 min or more. Pain is alleviated by injections, PT x 4 wks (cervical) which she is currently in, PT x 6 wks in Jun/ Jul 2023 (lumbar), physician guided home exercises daily since Jul 2023, heat, medications, topical, repositioning and rest. Cervical disability score at 18. Interventional procedures include BL TFESI L4-L5 x1 Medications include Celebrex, Ibu, Flexeril REVIEW OF ORGAN SYSTEMS: CONSTITUTIONAL: No fevers or chills. No recent weight loss. NEUROLOGICAL: + numbness and tingling along the distal extremities. No seizure disorders or headaches. MUSCULOSKELETAL: + pain PSYCHIATRIC: Denies current depression or suicidal thoughts. Physical Examinations : Constitutional : Cooperative , not in acute distress . Neurologic : Cranial nerve II to XII intact. No focal neurological deficits. Psychiatric : alert & oriented x 3. Matching mood & appropriate affect. Judgment & insight intact. Musculoskeletal : Cervical Spine Motor strength in the deltoid and biceps: Normal right side. Normal Left side Motor strength biceps and the wrist extensors: Normal right side . Normal left side Motor strength in the triceps muscle: Normal right side. Normal left side Deep tendon reflexes: Normal at the biceps. Normal at Brachioradialis. Normal at triceps Vertebral body tenderness to deep palpation over Cervical facet loading test: Spurling test: positive positive R C6- C7, C7-T1 Neck distraction test: positive bilaterally Catracho sign: positive bilaterally Lumbar spine Motor strength lower extremities ,thigh and legs 5/5 Right side , 5/5 Left side Deep tendon reflexes : Normal Knee Jerk. Normal Ankle Jerk Vertebral body tenderness over Patel Test positive Lumbar facet Loading Test: positive Right / positive Left Range of motion of the lumbar spine Flexion 30 degrees, extension 10 degrees Straight Leg Raise test: Left/ Right positive at <35 degrees Nona test: positive right / positive left. Severe tenderness over the Sacroiliac joint on the Right / Left sides Gaenslen test: positive bilaterally Seated flexion test: positive bilaterally. Sacral spine : Severe tenderness over the Sacroiliac joint: right side / left side Range of motion: Flexion of the lumbar spine <60 degrees Range of motion: Extension of the lumbar spine <20 degrees Gaenslen's Test positive Jeb's Test positive Nona test: positive right side / left side Thigh Thrust Test Sacral Thrust Test Imaging: CT without contrast lumbar spine from 03/02/23 reviewed Assessment/ Plan : C2-C6 Fusion w Posterior Hardware, Lumbar DDD, Lumbar stenosis Recommendation of R TFESI C6-C7, C7-T1 #1. May need a series of injections for optimal pain relief. Risks, benefits of procedure discussed and patient verbalized understanding. Protocol for discontinuation/continuation of medications surrounding procedure discussed. All questions answered. I have spent greater than 30 minutes on patient care today. Dr Shah was available by phone for the evaluation of this patient. The time was used to review the medical records including relevant urine studies and Prescription history (MAPs), review of the available imaging, evaluation and examination of the patient, coordination of care with the medical staff and if applicable referring physicians, as well as creation of the medical record PQRS Narrative: Hx Alcohol Use (MH) No Home Medications: Ambulatory Orders Albuterol Sulfate [Ventolin HFA] 1 - 2 puff INHALATION Q6H PRN 11/11/21 Budesonide/Formoterol Fumarate [Symbicort 80-4.5 Mcg Inhaler] 2 puff INHALATION BID 11/11/21 Cyclobenzaprine [Flexeril] 10 mg PO TID PRN 11/11/21 Ibuprofen [Motrin] 800 mg PO Q6H PRN 11/11/21 Losartan [Cozaar] 25 mg PO DAILY 11/11/21 Montelukast [Singulair] 10 mg PO HS 11/11/21 busPIRone HCL 5 mg PO TID 11/11/21 Cholecalciferol [Vitamin D3 (125 Mcg = 5000 Iu)] 125 mcg PO Q30D 02/21/23 Controlled Substance Measures - Controlled Substance Measures Is patient prescribed a controlled substance at discharge?: No
== END ==
LOC: PNWHC3 07:10
PROVIDERS: ATTEND Specialist
DX: M51.35 Other intervertebral disc degeneration, thoracolumbar region (principal); M50.33 Other cervical disc degeneration, cervicothoracic region; M48.061 Spinal stenosis, lumbar region without neurogenic claudication; M43.22 Fusion of spine, cervical region
CPT/HCPCS: 99211

== ENCOUNTER 2023-11-22 08:56 | Day surgery (SDC) | payer MEDICARE, OTHER ==
[2023-11-19 11:11] VITALS: BMI 29.2
[2023-11-22 10:35] VITALS: TEMP 97.6
[2023-11-22] MEDS ORDERED: DEXAMETHASONE SOD PHOSPHATE 10 MG/ML 1 ML VIAL ONE (10:49)
[2023-11-22] MEDS ORDERED: IOPAMIDOL M200 10 ML VIAL ONE (10:49)
[2023-11-22 11:43] VITALS: BP 143/88; PULSE 80; RESP 20
--- NOTE | 2023-11-22 11:45 | P.PCN ---
Date of Procedure: 11/22/23 Procedure(s) Performed: PREOPERATIVE DIAGNOSIS:1- Cervical radiculopathy . 2-failed back surgery syndrome cervical area POSTOPERATIVE DIAGNOSIS: Same as preoperative diagnoses. PROCEDURE 1. Transforaminal epidural steroid injection under fluoroscopic guidance at right C6-7 level. (Fluoroscopy images stored on file in the radiology Department ) ANESTHESIA: Local with 1% lidocaine 3 ml. EBL: Minimal PROCEDURE INDICATION: The patient with severe neck pain and radiculopathy to the upper extremity , the symptoms unresponsive to conservative treatment. PROCEDURE DESCRIPTION / TECHNIQUE: The patient was seen and identified in the preoperative area. Risks, benefits, complications, and alternatives were discussed with the patient. The patient agreed to proceed with the procedure and signed the consent. IV was started, and vital signs were stable. Patient was taken to the OR and time out was completed. The patient was placed in the supine position on procedure table . The cervical area was prepped and draped in the usual sterile fashion. Critical pause was taken. Vital signs were closely monitored during the procedure. Conscious sedation was used during the procedure to decrease patient s anxiety. Using oblique fluoroscopy, the Right C6-7 level was identified, in the lateral view , the skin and deeper tissues just below was localized with 1% lidocaine. Subsequently, a 22-gauge 3.5-inch spinal needle was advanced under a tunneled view fluoroscopic guidance just underneath the foraminotomy of at the right C6-7 Under lateral fluoroscopy, the needle was then advanced to the posterior border of the interforaminal space. After negative aspiration of CSF and blood and with no paresthesias, 1 mL Isovue 200 contrast dye was injected excellent epidurogram , 2 mL of block solution containing 20 mg Dexamethasone PF was injected. Needle was removed . At the end of the procedure, skin was cleansed, and bandages were applied. COMPLICATIONS:none DISPOSITION / PLANS: The patient was placed in a supine position and transferred to the recovery area in a stable condition for observation. There was no evidence of lower extremity motor or sensory deficit after the procedure. Patient was discharged from the recovery room after meeting discharge criteria. Home discharge instructions were given to the patient by the staff. The patient was reexamined prior to discharge.
--- NOTE | 2023-11-22 12:50 | FL ---
EXAMINATION TYPE: FL guided pain mgmt statistic DATE OF EXAM: 11/22/2023 FLUOROSCOPY Fluoroscopy time of 8.3 seconds was used during cervical transforaminal epidural injection. 1 image/ s document/s the procedure. DAP: 0.16985 mGycm2.
== END 2023-11-22 11:26 | disposition home or self-care (01) ==
LOC: ORPAIN 08:56
PROVIDERS: ATTEND Specialist
DX: M50.123 Cervical disc disorder at C6-C7 level with radiculopathy (principal); M96.1 Postlaminectomy syndrome, not elsewhere classified
CPT/HCPCS: 64479; J1100; Q9966; 64483

== ENCOUNTER → 2023-12-06 | Outpatient (CLI) | payer MEDICARE, OTHER ==
[2023-12-06 08:03] VITALS: BP 118/80; PULSE 76; RESP 15; TEMP 97.2
--- NOTE | 2023-12-06 14:07 | P.PAINPG ---
Objective - Vital Signs Vital signs: Intake & Output 12/05/23 12/06/23 12/06/23 18:59 06:59 18:59 Weight 63.503 kg PQRS Measure Charge Sheet Comment: HISTORY OF PRESENT ILLNESS: A 53 yr old female presents today w severe and chronic neck pain secondary to cervical postlaminectomy syndrome for evaluation s/p R TFESI C6-C7 #1. Pt states she experienced 85% pain relief x 2 wks s/p procedure. Pt states pain level is provoked at 1 /10 in intensity, constant, localized in the cervical spine, predominantly axial, stabbing in character w shooting pain towards the back of the BL shoulders. Pain is provoked by laying supine for periods of 20 min or more. Pain is alleviated by injections, PT x 4 wks (cervical) which she is currently in, PT x 6 wks in Jun/ Jul 2023 (lumbar), physician guided home exercises daily since Jul 2023, heat, medications, topical, repositioning and rest. Cervical disability score at 12. Interventional procedures include BL TFESI L4-L5 x1, R TFESI C6-C7 x1 Medications include Celebrex, Ibu, Flexeril REVIEW OF ORGAN SYSTEMS: CONSTITUTIONAL: No fevers or chills. No recent weight loss. NEUROLOGICAL: + numbness and tingling along the distal extremities. No seizure disorders or headaches. MUSCULOSKELETAL: + pain PSYCHIATRIC: Denies current depression or suicidal thoughts. Physical Examinations : Constitutional : Cooperative , not in acute distress . Neurologic : Cranial nerve II to XII intact. No focal neurological deficits. Psychiatric : alert & oriented x 3. Matching mood & appropriate affect. Judgment & insight intact. Musculoskeletal : Cervical Spine Motor strength in the deltoid and biceps: Normal right side. Normal Left side Motor strength biceps and the wrist extensors: Normal right side . Normal left side Motor strength in the triceps muscle: Normal right side. Normal left side Deep tendon reflexes: Normal at the biceps. Normal at Brachioradialis. Normal at triceps Vertebral body tenderness to deep palpation over Cervical facet loading test: Spurling test: mild positive R C6-C7 Neck distraction test: positive bilaterally Catracho sign: positive bilaterally Lumbar spine Motor strength lower extremities ,thigh and legs 5/5 Right side , 5/5 Left side Deep tendon reflexes : Normal Knee Jerk. Normal Ankle Jerk Vertebral body tenderness over Patel Test positive Lumbar facet Loading Test: positive Right / positive Left Range of motion of the lumbar spine Flexion 30 degrees, extension 10 degrees Straight Leg Raise test: Left/ Right positive at <35 degrees Nona test: positive right / positive left. Severe tenderness over the Sacroiliac joint on the Right / Left sides Gaenslen test: positive bilaterally Seated flexion test: positive bilaterally. Sacral spine : Severe tenderness over the Sacroiliac joint: right side / left side Range of motion: Flexion of the lumbar spine <60 degrees Range of motion: Extension of the lumbar spine <20 degrees Gaenslen's Test positive Jeb's Test positive Nona test: positive right side / left side Thigh Thrust Test Sacral Thrust Test Imaging: CT without contrast lumbar spine from 03/02/23 reviewed Assessment/ Plan : C2-C6 Fusion w Posterior Hardware, Lumbar DDD, Lumbar stenosis Will manage residual pain and may RTC on an as needed basis. All questions answered. I have spent greater than 30 minutes on patient care today. Dr Shah was available by phone for the evaluation of this patient. The time was used to review the medical records including relevant urine studies and Prescription history (MAPs), review of the available imaging, evaluation and examination of the patient, coordination of care with the medical staff and if applicable referring physicians, as well as creation of the medical record PQRS Narrative: Hx Alcohol Use (MH) No Home Medications: Ambulatory Orders Albuterol Sulfate [Ventolin HFA] 1 - 2 puff INHALATION Q6H PRN 11/11/21 Budesonide/Formoterol Fumarate [Symbicort 80-4.5 Mcg Inhaler] 2 puff INHALATION BID 11/11/21 Cyclobenzaprine [Flexeril] 10 mg PO TID PRN 11/11/21 Ibuprofen [Motrin] 800 mg PO Q6H PRN 11/11/21 Losartan [Cozaar] 25 mg PO DAILY 11/11/21 Montelukast [Singulair] 10 mg PO HS 11/11/21 busPIRone HCL 5 mg PO TID 11/11/21 Cholecalciferol [Vitamin D3 (125 Mcg = 5000 Iu)] 125 mcg PO Q30D 02/21/23 Controlled Substance Measures - Controlled Substance Measures Is patient prescribed a controlled substance at discharge?: No
== END ==
LOC: PNWHC3 07:17
PROVIDERS: ATTEND Specialist
DX: M47.812 Spondylosis without myelopathy or radiculopathy, cervical region (principal); M51.36 Other intervertebral disc degeneration, lumbar region; M43.22 Fusion of spine, cervical region; M48.061 Spinal stenosis, lumbar region without neurogenic claudication
CPT/HCPCS: 99211

== ENCOUNTER → 2024-02-14 | Outpatient (CLI) | payer MEDICARE, OTHER ==
--- NOTE | 2024-02-14 15:23 | CT ---
EXAMINATION TYPE: CT chest angio for PE DATE OF EXAM: 02/14/2024 COMPARISON: None HISTORY: SOB CT DLP: 256.7 mGycm Automated exposure control for dose reduction was used. CONTRAST: CT Chest for pulmonary embolism performed with with IV Contrast, patient injected with 100 mL of Isov ue 370. FINDINGS: There are no filling defects within the pulmonary arterial circulation to suggest pulmonary and pleas ant. There is marked dextroscoliosis of the thoracic spine with Langley serenity fixation. There is poor inspiration and diffuse groundglass density in the lung parenchyma likely secondary to poor inspiratory effort and atelectasis. There is no pleural effusion or pneumothorax. There is moderate cardiomegaly. There is no mediastinal, hilar or axillary adenopathy. Limited scanning through the upper abdomen reveals no gross abnormality. IMPRESSION: 1. No evidence of pulmonary embolism. 2. Marked dextroscoliosis of the thoracic spine. 3. Diffuse groundglass density in the lungs most likely reflecting poor inspiration and atelectasis.
== END | disposition home or self-care (01) ==
LOC: RADCTMAIN 14:24
PROVIDERS: ATTEND Internal Medicine
DX: M41.84 Other forms of scoliosis, thoracic region (principal); J98.4 Other disorders of lung; R06.02 Shortness of breath
CPT/HCPCS: 71275; Q9967

== ENCOUNTER → 2024-04-03 | Outpatient (CLI) | payer MEDICARE, OTHER ==
[2024-04-03 10:41] LABS: HCT 46.9 % (37.2-46.3); HGB 14.8 g/dL (12.0-15.0); MCH 25.9 pg (27.0-32.0); MCHC 31.6 g/dL (32.0-37.0); MCV 82.1 FL (80.0-97.0); Mean Platelet Volume 11.6 FL (9.5-12.2); NRBC Per 100 WBC 0 X 10*3/uL (0.00-0.01); Platelet Count 312 X 10*3/uL (140-440); RBC 5.71 X 10*6/uL (4.10-5.20); RDW 14.1 % (11.5-14.5); WBC 8.24 X 10*3/uL (4.50-10.00)
[2024-04-03 10:50] LABS: Blood Urea Nitrogen 12.2 mg/dL (9.0-27.0); Chloride 106 mmol/L (96-109); Potassium 4.8 mmol/L (3.5-5.5); Sodium 140 mmol/L (135-145)
== END | disposition home or self-care (01) ==
LOC: LABPAT 07:18
PROVIDERS: ATTEND Internal Medicine Cardiovascular Disease
DX: Z01.812 Encounter for preprocedural laboratory examination (principal); R94.39 Abnormal result of other cardiovascular function study
CPT/HCPCS: 80051; 82565; 84520; 85027

== ENCOUNTER → 2024-04-11 | Day surgery (SDC) | payer MEDICARE, OTHER ==
[~2024-04-11] MED LIST changes: +ALPRAZolam 0.25 MG TAB PO PRN; +ALPRAZolam 0.5 MG TAB PO PRN; +ASPIRIN 325 MG TAB PO STA; +ATORVASTATIN 80 MG TAB PO STA; +HEPARIN SODIUM 1,000 UN/ML (10ML VL) ONE; +HEPARIN SODIUM,PORCINE (1 ML) 2,500 UNIT in SODIUM CHLORIDE 0.9% 250 ML IRRIGATION PRN; +HEPARIN SODIUM,PORCINE 10,000 UNIT in SODIUM CHLORIDE 0.9% 1,000 ML IRRIGATION PRN; -LACTATED RINGERS 1,000 ML IV SCH; +LIDOCAINE 1% INJ 10MG/ML (20 ML MDV) ONE; +NITROGLYCERIN SL TABS 0.4 MG TAB SUBLINGUAL PRN; +RX INFO: IV CONTRAST WAS GIVEN 1 EACH MISC MISCELLANE PRN; +SODIUM CHLORIDE 0.9% 1,000 ML IV SCH; +SODIUM CHLORIDE 0.9% 1,000 ML in EMPTY BAG 1 BAG IV SCH; +VERAPAMIL 2.5 MG/ML 2 ML AMP ONE; +fentaNYL (PF) 50 MCG/ML 2 ML AMP ONE
[2024-04-11] MEDS: ASPIRIN 325 MG TAB PO ONE (06:47)
[2024-04-11 06:48] VITALS: TEMP 97.9
[2024-04-11] MEDS: SODIUM CHLORIDE 0.9% 1,000 ML IV ONE (06:48)
[2024-04-11] MEDS: LIDOCAINE 1% INJ 10MG/ML (20 ML MDV) SQ ONE (07:38)
[2024-04-11] MEDS: fentaNYL (PF) 50 MCG/1 ML VIAL IVP ONE (07:38)
[2024-04-11] MEDS: MIDAZOLAM 2 MG/2 ML VIAL IVP ONE (07:38)
[2024-04-11] MEDS: VERAPAMIL 2.5 MG/ML 4 ML VIAL INTRAARTER ONE (07:39)
[2024-04-11] MEDS: HEPARIN SODIUM 1,000 UN/ML (10ML VL) IVP ONE (07:43)
[2024-04-11] MEDS: IOPAMIDOL-370 100ML BTL INTRATHECA ONE (07:55)
[2024-04-11] MEDS: HEPARIN SODIUM,PORCINE (1 ML) 2,500 UNIT in SODIUM CHLORIDE 0.9% 250 ML IRRIGATION ONE (07:56)
[2024-04-11] MEDS: HEPARIN SODIUM,PORCINE 10,000 UNIT in SODIUM CHLORIDE 0.9% 1,000 ML IRRIGATION ONE (07:56)
--- NOTE | 2024-04-11 08:15 | CC ---
CARDIAC CATHETERIZATION REPORT INDICATIONS: Shortness of breath with abnormal stress test showing ischemia in LAD distribution. PROCEDURE NOTE: After obtaining informed consent, left heart catheterization and coronary angiogram were performed via the right radial artery using standard Sujit catheters. The patient tolerated the procedure well without any obvious immediate complications. The patient received moderate conscious sedation. Total sedation time was 11 minutes. Right radial artery access was obtained using Seldinger technique, 6-[place] Island[place] sheath was placed. Catheters and wires were floated into the ascending aorta under fluoroscopic guidance. The patient received verapamil and heparin per protocol. A TR band will be used for hemostasis. FINDINGS: 1. Hemodynamics: Left ventricular end-diastolic pressure is 8 to 10 mm. There is no significant gradient across the aortic valve. 2. Left Ventriculogram: Left ventriculogram is not performed. 3. Angiographic Data: a.Right Coronary Artery: Right coronary artery is a large dominant vessel and is free of significant stenosis. Left main coronary artery is a short vessel and is free of disease, divides into left anterior descending coronary artery and circumflex coronary artery. LAD and its branches, circumflex coronary artery and its branches are free of significant stenosis. CONCLUSION: 1. Normal coronary arteries. 2. Normal left ventricular end-diastolic pressure. 3. The patient's stress test is a false-positive stress test and shortness of breath is noncardiac in origin. MMODL / IJN: [id number] /
--- NOTE | 2024-04-11 08:33 | LTR ---
Dear Eduar: I performed cardiac catheterization on Javi Kebede. A detailed catheterization note is enclosed for your records. In brief, the cardiac catheterization revealed normal coronary arteries. The patient's stress test is a false positive stress test and her shortness of breath is probably noncardiac in origin. Thank you for allowing me to participate in the care of this pleasant lady. Sincerely, KANDIS / AIMEE: [id number] /
[2024-04-11 13:43] VITALS: BP 120/69; PULSE 78; RESP 16
== END ==
LOC: CATHCVL 06:27
PROVIDERS: ATTEND Internal Medicine Cardiovascular Disease
DX: R94.39 Abnormal result of other cardiovascular function study (principal); R06.02 Shortness of breath
CPT/HCPCS: 93458; J2250; J1644 ×3; J2001; Q9967; J3010

== ENCOUNTER 2024-04-13 19:25 | Outpatient (CLI) | payer MEDICARE, OTHER ==
--- NOTE | 2024-05-06 22:12 | P.PCN ---
Date of Procedure: 04/13/24 Operative Findings: Polysomnography report Date of service is 04/13/2024 Pertinent history 53-year-old male patient diagnosed having severe symptomatic obstructive sleep apnea with 36.3 based on a sleep study that was done on 03/08/2024. This was a home sleep study testing done through an outside company. The patient has several other comorbidities. The patient has restrictive lung disease secondary to neurofibromatosis and kyphoscoliosis of the spine. He also has a component of interstitial lung disease/fibrosis related to neurofibromatosis. He suffers from chronic hypoxic respiratory failure, hyperlipidemia, hypertension, and acid reflux. Pertinent physical findings The patient has a body mass index of 30.5 with a weight of 146 pounds Technical description The patient was studied using a standard complex polysomnography protocol that included recording of the Lead II EKG, Central, occipital and frontal EEG, right and left outer canthus EOG, submental EMG, right and left anterior tibialis EMG, respiratory airflow by thermocouple and or pressure/flow transducer, respiratory efforts by abdominal and thoracic PVDF belts, oxygen saturation by cable oximetry. Position by observation synchronized the PSG. Equipment used: ReaLync. Stepwise CPAP titration was done to eliminate obstructive respiratory events CPAP titration summary CPAP titration was started initially at a pressure of 6 cm of water and the pressure was gradually creased by increments of 1 cm to reach a maximum CPAP pressure of 12 cm of water. Oxygen was also added at CPAP pressures of 1011 and 12 cm of water. I carefully reviewed the CPAP titration taken on, the patient sleep stage and body position. The oxygen desaturations were minimal and they essentially were eliminated with CPAP therapy in combination. I noted that that pressures of 8 through 12 cm of water, the patient was essentially well treated without any significant obstructive apneas or hypopneas. No evidence of any central apneas. Sleep continuity summary There was a total of 54 arousals with an arousal index of 14.4. The respiratory arousal index was 1.3 Periodic limb movement summary Patient had total of 10 periodic limb movement activity with an index of 2.7 Cardiac summary Average heart rate was 65 with a minimum heart rate of 39 and a maximum heart of 84 Assessment Severe symptomatic DYLLAN with an AHI of 36.3 confirmed by outpatient home sleep testing done on this patient, and the patient underwent a successful CPAP titration. Neurofibromatosis type II Interstitial lung disease Kyphoscoliosis Restrictive lung disease secondary to above Hypertension Acid reflux Plan Will offer the patient an APAP machine. This will be set at a minimum pressure of 7 and a maximum of 12. No need for oxygen supplementation at this point in time. C-Flex of 3. AirFit P10 small size nasal pillows will be utilized. The patient was seen back in office in 30 to 90 days for a short-term follow-up to assess clinical response and compliancy.
== END 2024-04-14 05:32 | disposition home or self-care (01) ==
LOC: 3 N SLEEP 19:25
PROVIDERS: ATTEND Internal Medicine Critical Care Medicine
CPT/HCPCS: 95811

== ENCOUNTER → 2024-08-27 | Outpatient (CLI) | payer MEDICARE, OTHER ==
--- NOTE | 2024-08-28 08:42 | MM ---
Reason for Exam: Screening (asymptomatic). Last screening mammogram was performed 12 month(s) ago. Patient History: Menarche at age 15. First Full-Term at age 18. Postmenopausal. Patient used Hormonal Contraceptives for 1 year. 08/25/2022, Benign US biopsy breast VAD LT on the left side. 08/25/2022, US biopsy breast VAD RT on the Right side. 08/25/2022, US breast aspiration single RT on the Right side. Risk Values: Itzel 5 year model risk: 1.2%. NCI Lifetime model risk: 8.1%. Prior Study Comparison: 04/24/2018 Bilateral Screening Mammogram, [facility]. 08/25/2022 Bilateral MG diagnostic mammo BI wo CAD, [facility]. 08/27/2023 Bilateral MG 3D diag mammo w/cad DENA, [facility]. Tissue Density: The breasts are heterogeneously dense, which may obscure small masses. Findings: Analyzed By CAD. There is no suspicious group of microcalcifications or new suspicious mass in either breast. Overall Assessment: Benign, BI-RAD 2 Management: Screening Mammogram of both breasts in 1 year. . Patient should continue monthly self-breast exams. A clinical breast exam by your physician is recommended on an annual basis. This exam should not preclude additional follow-up of suspicious palpable abnormalities. Note on Itzel scores and lifetime risk: 1. A Itzel score greater than 3% is considered moderate risk. If this is the case, consider specialist referral to assess eligibility for a risk reducing agent. 2. If overall lifetime risk for the development of breast cancer is 20% or higher, the patient may qualify for future screening with alternating mammogram and breast MRI. [facility], , 08/28/2024 8:39 AM. Electronically signed and approved by: Jose Mayer M.D. Radiologis
== END | disposition home or self-care (01) ==
LOC: RADMAMWWP 09:12
PROVIDERS: ATTEND Surgery
DX: Z12.31 Encounter for screening mammogram for malignant neoplasm of breast (principal); Z78.0 Asymptomatic menopausal state; R92.333 Mammographic heterogeneous density, bilateral breasts
CPT/HCPCS: 77063; 77067

== ENCOUNTER → 2024-09-18 | Outpatient (CLI) | payer MEDICARE, OTHER ==
[2024-09-18 14:45] VITALS: BP 118/74; PULSE 110; RESP 17; TEMP 98.1
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
== END ==
LOC: WWCWWP 14:14
PROVIDERS: ATTEND Surgery
DX: N60.11 Diffuse cystic mastopathy of right breast (principal); N60.12 Diffuse cystic mastopathy of left breast; R92.8 Other abnormal and inconclusive findings on diagnostic imaging of breast; R89.7 Abnormal histological findings in specimens from other organs, systems and tissues